=== PATIENT | female | born 1970 | race American Indian/Alaskan Native ===

== ENCOUNTER 2019-01-25 01:13 | Emergency (ER) | payer OTHER ==
[2019-01-25] MEDS ORDERED: Sodium Chloride 0.9% 1,000 ML IV SCH (01:30)
--- NOTE | 2019-01-25 01:59 | CRLCR ---
INDICATION: Chest pain bad inspiration due to patient being unresponsive TECHNIQUE: Chest radiograph 1 view COMPARISON: None FINDINGS: Moderate degradation of image quality noted due to body habitus. Mediastinum: The mediastinum is normal in appearance. The heart silhouette is normal in size and morphology. Lung: Both lungs are unremarkable in appearance with small lung volumes. No sign of pleural effusion seen. No pneumothorax is identified. Musculoskeletal: Unremarkable for age. IMPRESSION: 1. No acute cardiopulmonary disease is seen. Dictated by: Gerard Bo MD @ 01/25/2019 01:58:06 (Electronically Signed)
--- NOTE | 2019-01-25 02:48 | EDM.PDOC ---
ED HPI GENERAL MEDICAL PROBLEM - General Chief Complaint: Chest Pain Stated Complaint: FROM CARE HOME Time Seen by Provider: 01/25/19 01:30 Source of Information: Reports: Patient, Police History Limitations: Reports: Altered Mental Status - History of Present Illness INITIAL COMMENTS - FREE TEXT/NARRATIVE: 48-year-old female is an inmate [facility] and had a sudden loss of consciousness early this morning. She was transferred here by EMS. Accu-Chek was 1:30. The patient did start slowly regaining consciousness later in the course of her workup and we're able to get some history out of her. She denied any history of seizures. She was complaining of some generalized headache. Pain level 3/10. She denies use of alcohol or drugs. She doesn't have a history of anxiety and depression and bipolar disorder. She was on several medications for her psychiatric problems but has not been taking them recently because of lack of insurance. She confided to me that she continue using her Klonopin 1 mg 3 times daily which she was buying off the street and use this up until today she was incarcerated which was one week ago. She tells me that she has been using Klonopin for the last 14 years. The [employer] said that she was complaining of some chest pain earlier today but she denies this when she woke up. 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 Denies: Shortness of Breath Cardiovascular: Reports: Chest Pain GI/Abdominal: Denies: Abdominal Pain, Diarrhea, Vomiting : Reports: No Symptoms Neurological: Reports: Confusion, Headache Psychiatric: Reports: Anxiety, Depression ED EXAM, GENERAL - Physical Exam Exam: See Below Exam Limited By: Altered Mental Status General Appearance: Lethargic Ears: Normal External Exam, Normal Canal Ear Exam: Bilateral Ear: Auricle Normal, Canal Normal Nose: Normal Inspection Throat/Mouth: Other (No teeth. No oral trauma.) Head: Atraumatic Neck: Supple, Non-Tender Respiratory/Chest: No Respiratory Distress, Lungs Clear, Normal Breath Sounds Cardiovascular: Normal Peripheral Pulses, Regular Rate, Rhythm GI/Abdominal: Normal Bowel Sounds, Soft, Non-Tender Neurological: Slow to Respond Psychiatric: Depressed Mood Skin Exam: Warm, Dry, Normal Color EKG INTERPRETATION Rhythm: NSR Course - Vital Signs Last Recorded V/S: Last Vital Signs Temp 36.9 C 01/25/19 01:15 Pulse 98 01/25/19 04:24 Resp 25 H 01/25/19 03:20 BP 112/69 01/25/19 04:24 Pulse Ox 95 01/25/19 04:24 - Orders/Labs/Meds Labs: Laboratory Tests 01/25/19 01/25/19 01/25/19 Range/Units 01:36 01:37 01:38 WBC 10.6 (4.5-11.0) K/uL RBC 5.76 H (3.30-5.50) M/uL Hgb 16.5 H (12.0-15.0) g/dL Hct 51.6 H (36.0-48.0) % MCV 90 (80-98) fL MCH 29 (27-31) pg MCHC 32 (32-36) % Plt Count 356 (150-400) K/uL Neut % (Auto) 58 (36-66) % Lymph % (Auto) 34 (24-44) % [place] % (Auto) 6 (2-6) % Eos % (Auto) 1 L (2-4) % Baso % (Auto) 0 (0-1) % Sodium (140-148) mmol/L Potassium (3.6-5.2) mmol/L Chloride (100-108) mmol/L Carbon Dioxide (21-32) mmol/L Anion Gap (5.0-14.0) mmol/L BUN (7-18) mg/dL Creatinine (0.6-1.0) mg/dL Est Cr Clr Drug Dosing mL/min Estimated GFR (MDRD) (>60) Glucose (74-106) mg/dL Lactic Acid (0.4-2.0) mmol/L Calcium (8.5-10.1) mg/dL Total Bilirubin (0.2-1.0) mg/dL AST (15-37) U/L ALT (12-78) U/L Alkaline Phosphatase (46-116) U/L Troponin I (0.000-0.056) ng/mL Total Protein (6.4-8.2) g/dL Albumin (3.4-5.0) g/dL Globulin (2.3-3.5) g/dL Albumin/Globulin Ratio (1.2-2.2) Urine Color Yellow Urine Appearance Clear Urine pH 7.0 (4.5-8.0) Ur Specific [place] 1.010 (1.008-1.030) Urine Protein Negative (NEGATIVE) mg/dL Urine Glucose (UA) Normal (NEGATIVE) mg/dL Urine Ketones Negative (NEGATIVE) mg/dL Urine Occult Blood Negative (NEGATIVE) Urine Nitrite Negative (NEGATIVE) Urine Bilirubin Negative (NEGATIVE) Urine Urobilinogen Normal (NORMAL) mg/dL Ur Leukocyte Esterase Negative (NEGATIVE) Urine RBC 0-5 (0-5) Urine WBC 0-5 (0-5) Ur Epithelial Cells Few Amorphous Sediment Not seen Urine Bacteria Few Urine Mucus Not seen Urine Opiates Screen Negative (NEGATIVE) Ur Oxycodone Screen Negative (NEGATIVE) Urine Methadone Screen Negative (NEGATIVE) Ur Propoxyphene Screen Negative (NEGATIVE) Ur Barbiturates Screen Negative (NEGATIVE) Ur Tricyclics Screen Negative (NEGATIVE) Ur Phencyclidine Scrn Negative (NEGATIVE) Ur Amphetamine Screen Negative (NEGATIVE) U Methamphetamines Scrn Negative (NEGATIVE) Urine MDMA Screen Negative (NEGATIVE) U Benzodiazepines Scrn Presumptive positive H (NEGATIVE) U Cocaine Metab Screen Negative (NEGATIVE) U Marijuana (THC) Screen Negative (NEGATIVE) 01/25/19 01/25/19 Range/Units 01:38 01:38 WBC (4.5-11.0) K/uL RBC (3.30-5.50) M/uL Hgb (12.0-15.0) g/dL Hct (36.0-48.0) % MCV (80-98) fL MCH (27-31) pg MCHC (32-36) % Plt Count (150-400) K/uL Neut % (Auto) (36-66) % Lymph % (Auto) (24-44) % [place] % (Auto) (2-6) % Eos % (Auto) (2-4) % Baso % (Auto) (0-1) % Sodium 142 (140-148) mmol/L Potassium 4.3 (3.6-5.2) mmol/L Chloride 105 (100-108) mmol/L Carbon Dioxide 27 (21-32) mmol/L Anion Gap 10.3 (5.0-14.0) mmol/L BUN 14 (7-18) mg/dL Creatinine 1.0 (0.6-1.0) mg/dL Est Cr Clr Drug Dosing 63.25 mL/min Estimated GFR (MDRD) 60 (>60) Glucose 132 H (74-106) mg/dL Lactic Acid 2.7 H (0.4-2.0) mmol/L Calcium 9.1 (8.5-10.1) mg/dL Total Bilirubin 0.2 (0.2-1.0) mg/dL AST 26 (15-37) U/L ALT 67 (12-78) U/L Alkaline Phosphatase 126 H (46-116) U/L Troponin I < 0.017 (0.000-0.056) ng/mL Total Protein 8.3 H (6.4-8.2) g/dL Albumin 3.8 (3.4-5.0) g/dL Globulin 4.5 H (2.3-3.5) g/dL Albumin/Globulin Ratio 0.8 L (1.2-2.2) Urine Color Urine Appearance Urine pH (4.5-8.0) Ur Specific [place] (1.008-1.030) Urine Protein (NEGATIVE) mg/dL Urine Glucose (UA) (NEGATIVE) mg/dL Urine Ketones (NEGATIVE) mg/dL Urine Occult Blood (NEGATIVE) Urine Nitrite (NEGATIVE) Urine Bilirubin (NEGATIVE) Urine Urobilinogen (NORMAL) mg/dL Ur Leukocyte Esterase (NEGATIVE) Urine RBC (0-5) Urine WBC (0-5) Ur Epithelial Cells Amorphous Sediment Urine Bacteria Urine Mucus Urine Opiates Screen (NEGATIVE) Ur Oxycodone Screen (NEGATIVE) Urine Methadone Screen (NEGATIVE) Ur Propoxyphene Screen (NEGATIVE) Ur Barbiturates Screen (NEGATIVE) Ur Tricyclics Screen (NEGATIVE) Ur Phencyclidine Scrn (NEGATIVE) Ur Amphetamine Screen (NEGATIVE) U Methamphetamines Scrn (NEGATIVE) Urine MDMA Screen (NEGATIVE) U Benzodiazepines Scrn (NEGATIVE) U Cocaine Metab Screen (NEGATIVE) U Marijuana (THC) Screen (NEGATIVE) Meds: Medications Discontinued Medications Generic Name Dose Route Start Last Admin Trade Name Freq PRN Reason Stop Dose Admin Clonazepam 1 mg 01/25/19 03:56 01/25/19 04:15 Klonopin PO 01/25/19 03:57 1 mg ONETIME ONE Administration Sodium Chloride 1,000 mls @ 125 mls/hr 01/25/19 01:30 01/25/19 01:44 Normal Saline IV 125 mls/hr ASDIRECTED BROOK[place]NN Administration Ketorolac Tromethamine 30 mg 01/25/19 03:55 01/25/19 04:15 Toradol IVPUSH 01/25/19 03:56 30 mg ONETIME ONE Administration Lorazepam 1 mg 01/25/19 03:50 01/25/19 04:15 Ativan IVPUSH 01/25/19 03:51 1 mg ONETIME ONE Administration - Radiology Interpretation Free Text/Narrative:: Chest x-ray is normal. CT scan of the head is normal. - Re-Assessments/Exams Free Text/Narrative Re-Assessment/Exam: 01/25/19 04:25 An IV was started and she was given normal saline. She was given 1 mg of Ativan IV to prevent further seizures. She was also given Klonopin 1 mg by mouth. She was given Toradol 30 mg IV for her headache. She was doing much better after treatment. 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 Care Plan Goals: Follow-up with primary provider next week for ongoing prescriptions for Klonopin and hopefully tapering doses. 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
--- NOTE | 2019-01-25 02:59 | CRLCT ---
INDICATION: Headache TECHNIQUE: CT Head without i.v. contrast. COMPARISON: None FINDINGS: CSF space: The ventricles are normal for age. Brain: No evidence of mass, acute infarction or hemorrhage is seen. No mass-effect or midline shift is seen. The brain parenchyma is otherwise normal in appearance with preservation of the harmon-white matter junction. Calvarium: The visualized paranasal sinuses are well aerated. The mastoid air cells are clear. The visualized orbits are grossly unremarkable. The calvarium is unremarkable in appearance with no fractures identified. IMPRESSION: 1. No evidence of acute infarction, intracranial hemorrhage, or mass-effect seen. Please note that all CT scans at this facility use dose modulation, iterative reconstruction, and/or weight-based dosing when appropriate to reduce radiation dose to as low as reasonably achievable. Dictated by: Gerard Bo MD @ 01/25/2019 02:59:15 (Electronically Signed)
[2019-01-25] MEDS ORDERED: LORazepam 2 MG/ML SDV IVPUSH ONE (03:50)
[2019-01-25] MEDS ORDERED: Ketorolac 30 MG/ML SDV IVPUSH ONE (03:55)
[2019-01-25] MEDS ORDERED: ClonazePAM 0.5 MG Tab PO ONE (03:56)
== END 2019-01-25 04:38 ==
LOC: JP.ED 01:13
DX: F13.239 Sedative, hypnotic or anxiolytic dependence with withdrawal, unspecified (principal); R56.9 Unspecified convulsions; F31.9 Bipolar disorder, unspecified; F41.9 Anxiety disorder, unspecified
CPT/HCPCS: 36415; 51702; 70450; 71045; 80053; 80305; 81001; 83605; 84484; 85025; 93005; 96361; 96374; 96375; 99284; A9270; J1885; J2060; J7030